=== PATIENT | male | born 1960 | race Caucasian/White ===

== ENCOUNTER 2016-12-03 18:27 | Emergency (ER) | payer BC ==
[~2016-12-03] VITALS: Ht 182.9 cm; Wt 78.9 kg
[2016-12-03] MEDS ORDERED: KEFLEX500 MG PO (20:09)
[2016-12-03 21:12] VITALS: BP 129/102
== END 2016-12-03 21:17 | disposition home or self-care (01) ==
LOC: EME 18:27
PROC: 0HQBXZZ Repair Right Upper Arm Skin, External Approach (ICD-10-PCS; principal; 2016-12-03)
DX: S51.021A Laceration with foreign body of right elbow, initial encounter (principal); S80.212A Abrasion, left knee, initial encounter; V18.0XXA Pedal cycle driver injured in noncollision transport accident in nontraffic accident, initial encounter; Y93.55 Activity, bike riding
CPT/HCPCS: 73080; 99281; 99284